=== PATIENT | female | born 1965 | race Caucasian/White ===

== ENCOUNTER 2024-07-11 12:48 | Emergency (ER) | payer OTHER, SELFPAY ==
[2024-07-11 13:00] VITALS: BP 153/88; PULSE 100; RESP 20; TEMP 36.6; O2SAT 95
[2024-07-11 14:20] LABS: Basophils Absolute Auto 0.1 K/mm3 (0.0-0.1); Basophils Percent Auto 0.6 % (0.2-1.2); Eosinophils Absolute Auto 0.2 K/mm3 (0-0.3); Eosinophils Percent Auto 1.5 % (0-4.4); Hemoglobin 14.8 g/dL (12.0-15.0); Immature Granulocyte Absolute 0.04 K/mm3 (0.00-0.031); Immature Granulocyte Percent A 0.3 % (0-0.5); Lymphocytes Absolute Auto 1.99 K/mm3 (0.9-3.2); Lymphocytes Percent Auto 17.3 % (18.3-44.2); Mean Corpuscular HGB Conc 32.9 g/dl (32-36); Mean Corpuscular Hemoglobin 30.6 pg (26-34); Mean Corpuscular Volume 93.2 fl (80-100); Mean Platelet Volume 9.9 fl (7.4-10.4); Monocytes Absolute Auto 0.6 K/mm3 (0.1-0.6); Monocytes Percent Auto 5.5 % (2.6-8.5); Neutrophils Absolute Auto 8.6 K/mm3 (1.3-6.7); Neutrophils Percent Auto 74.8 % (45.5-73.1); Platelet Count Result 240 k/mm3 (150-375); Red Blood Count 4.83 M/mm3 (4.2-5.4); Red Cell Distribution Width 12.8 % (11.5-14.5); White Blood Count 11.5 K/mm3 (4.5-10.0)
[2024-07-11 14:31] LABS: Prothrombin Time 13.7 Seconds (11.1-14.7)
[2024-07-11 14:37] LABS: Alanine Aminotransferase 58 U/L (6-35); Alkaline Phosphatase 80 U/L (38-126); Anion Gap 11 mmol/L (4-12); Aspartate Amino Transferase 55 U/L (14-36); Bilirubin,Total 0.8 mg/dL (0.2-1.3); Blood Urea Nitrogen 10 mg/dL (7-17); Calcium 9.8 mg/dL (8.4-10.2); Carbon Dioxide 26 mmol/L (22-30); Chloride 103 mmol/L (98-107); Estimated CRCL calculation 98 ml/min; Estimated Glomerular Filt Rate > 60; Glucose 129 mg/dL (65-110); Potassium 4.1 mmol/L (3.4-5.0); Sodium 140 mmol/L (137-145)
[2024-07-11 14:47] LABS: NT Pro B Type Natriuretic Pept 63 pg/mL (19.9-100); Troponin I < 0.012 ng/mL (0.000-0.034)
[2024-07-11 15:06] LABS: Influenza A QL RT-PCR Negative (Negative); Influenza B QL RT-PCR Negative (Negative); RSV RNA, RT-PCR Negative (Negative); SARS-CoV-2 RNA PCR Negative (Negative)
--- NOTE | 2024-07-11 15:40 | ED.SOB ---
HPI - SOB/Dyspnea General Chief Complaint: Shortness of Breath/Dyspnea Stated Complaint: shortness of breath Time Seen by Provider: 07/11/24 15:36 Source: patient Mode of arrival: ambulatory Limitations: no limitations History of Present Illness HPI Narrative: 59 YEARS OLD WHITE FEMALE CAME FROM HOME COMPLAINING OF SHORTNESS OF BREATH OVER THE LAST 5 DAYS, GRADUALLY GETTING WORSE. PATIENT REPORTS CAN NOT SLEEP LYING DOWN FLAT. LAST TIME WAS SEEN BY HER FAMILY PHYSICIAN AND HAVE YEAR AGO, HISTORY OF DIABETES, RUN OUT OF INSURANCE USED TO BE ON METFORMIN, NOT ON IT FOR A WHILE. HISTORY OF HYPERLIPIDEMIA, ASTHMA, NOT ON BLOOD THINNER, QUIT SMOKING 1 WEEK AGO, QUIT DRINKING ALCOHOL WEEK AGO. USES MARIJUANA OCCASIONALLY. PATIENT DENIES ANY FEVER OR CHILLS OR NAUSEA VOMITING, FEELS BLOATED Related Data Home Medications ?Medication ?Instructions ?Recorded ?Confirmed ?Last Taken ?Type acetaminophen 325 mg tablet 650 mg PO PRN PRN Pain (Scale 05/13/19 05/13/19 05/12/19 20:00 History (Tylenol) Score 1-3) ascorbic acid (vitamin C) 1,000 mg 1 g PO DAILY 05/13/19 05/13/19 05/10/19 08:00 History tablet (Vitamin C) pediatric multivitamin (Gummi Bear 1 tablet PO DAILY 05/13/19 05/13/19 05/10/19 08:00 History Multivitamin chewable tablet) Allergies Allergy/AdvReac Type Severity Reaction Status Date / Time No Known Allergies Allergy Verified 05/13/19 03:49 Review of Systems Review of Systems: All systems reviewed & are unremarkable except as noted in HPI and below PMFSH Past Medical History Medical History Asthma Surgical History Surgical History History of tonsillectomy Family History Family History Sibling Lung cancer Oral cancer Social History Social History Smoking packs per day: 0.5 Smoking cigarettes per day: 10.0 Years smoked: 40 Smoking pack-years: 20.00 Smoking status: Current every day smoker Tobacco type: cigarettes Second hand tobacco smoke exposure: Yes Additional smoking assessment comments: some days I don't smoke at all Alcohol intake: current Drinks per week: 25 Alcohol use details: 0.5 pint vodka 5 days ago Substance use: never Gender identity (if verbalized by the patient): Female Exam Narrative: GENERAL APPEARANCE: WELL-DEVELOPED, WELL-NOURISHED SKIN: NORMAL COLOR HEAD: NORMOCEPHALIC, NONTRAUMATIC EYES: CLEAR CONJUNCTIVA ENT: OROPHARYNX NORMAL, EARS NORMAL, NOSE NORMAL NECK: SUPPLE, NONTENDER CHEST AND RESPIRATORY: AIRWAY PATENT, SLIGHT LABORED BREATHING, DIMINUTION OF AIR ENTRY BILATERALLY HEART: REGULAR RATE/RHYTHM ABDOMEN: SOFT, NONTENDER, NO ORGANOMEGALY, QUIET BOWEL SOUNDS, LARGE ABDOMEN VASCULAR: NORMAL PERIPHERAL PULSES, NORMAL CAPILLARY REFILL. MUSCULOSKELETAL: NORMAL RANGE OF MOTION, NONTENDER BACK NEUROLOGIC: ALERT AND ORIENTED ?3, TRUANT OFFICER IS NORMAL TESTED, NO GROSS MOTOR DEFICIT Course Vital Signs Vital signs: Vital Signs Temperature 36.6 C 07/11/24 13:00 Pulse Rate 100 07/11/24 13:00 Respiratory Rate 20 07/11/24 13:00 Blood Pressure 153/88 H 07/11/24 13:00 Pulse Oximetry 95 07/11/24 13:00 Oxygen Delivery Room Air 07/11/24 13:00 Temperature 36.4 C 07/11/24 16:04 Pulse Rate 90 07/11/24 16:04 Respiratory Rate 26 H 07/11/24 16:04 Blood Pressure 134/98 H 07/11/24 16:04 Pulse Oximetry 92 07/11/24 16:04 Oxygen Delivery Room Air 07/11/24 16:04 MDM - SOB/Dyspnea MDM Narrative Medical decision making narrative: PATIENT CAME TO THE ED WITH DYSPNEA ON EXERTION AND WHEN SHE LAY DOWN FLAT VITAL SIGNS STABLE PHYSICAL EXAMINATION SIGNIFICANT FOR DECREASE AIR ENTRY BILATERALLY AND DISTENDED ABDOMEN DIFFERENTIAL DIAGNOSIS INCLUDE CONGESTIVE HEART FAILURE, PNEUMONIA, PLEURAL EFFUSION, PNEUMOTHORAX, COPD EXACERBATION, INTRA-ABDOMINAL PATHOLOGY BLOOD WORKUP TODAY INCLUDES CBC, CMP, TROPONIN, LIPASE, BNP SHOWED WBC 11.5, OTHERWISE WITHIN NORMAL LIMIT ABG ON ROOM AIR SHOWED PH OF 7.4, OXYGEN SATURATION ON ROOM AIR 93.7 PATIENT TESTED NEGATIVE FOR COVID, FLU AND RSV CHEST X-RAY SHOWED Minimal opacification near to the cardiac apex which may indicate atelectasis versus early pneumonia. Follow-up advised. CT ABDOMEN AND PELVIS WITH IV CONTRAST SHOWED NO ACUTE ABNORMALITIES, CT CHEST WITH IV CONTRAST SHOWED NO ACUTE CARDIOPULMONARY DISEASE DIAGNOSIS COPD EXACERBATION DISCHARGED ON Z-NAYLA, PREDNISONE Differential Diagnosis Differential diagnosis: Likely other ( ABOVE) Medical Records Attestation: I reviewed the patient's medical records. Lab Data Attestation: I reviewed the patient's lab results. 07/11/24 14:12 07/11/24 14:12 Labs: Lab Results 07/11/24 Range/Units 14:12 WBC 11.5 H (4.5-10.0) K/mm3 RBC 4.83 (4.2-5.4) M/mm3 Hgb 14.8 (12.0-15.0) g/dL Hct 45.0 (37.0-47.0) % MCV 93.2 (80-100) fl MCH 30.6 (26-34) pg MCHC 32.9 (32-36) g/dl RDW 12.8 (11.5-14.5) % Plt Count 240 (150-375) k/mm3 MPV 9.9 (7.4-10.4) fl Immature Gran % (Auto) 0.3 (0-0.5) % Neut % (Auto) 74.8 H (45.5-73.1) % Lymph % (Auto) 17.3 L (18.3-44.2) % [place] % (Auto) 5.5 (2.6-8.5) % Eos % (Auto) 1.5 (0-4.4) % Baso % (Auto) 0.6 (0.2-1.2) % Lymph # (Auto) 1.99 (0.9-3.2) K/mm3 [place] # (Auto) 0.6 (0.1-0.6) K/mm3 Eos # (Auto) 0.2 (0-0.3) K/mm3 Baso # (Auto) 0.1 (0.0-0.1) K/mm3 Abs Immat Gran (auto) 0.04 H (0.00-0.031) K/mm3 Absolute Neuts (auto) 8.6 H (1.3-6.7) K/mm3 Absolute Nucleated RBC 0.000 (0.0-0.012) K/mm3 Nucleated RBC % 0.0 (0.0-0.2) % PT 13.7 (11.1-14.7) Seconds INR 1.0 APTT 27.0 (22.3-36.8) Seconds Sodium 140 (137-145) mmol/L Potassium 4.1 (3.4-5.0) mmol/L Chloride 103 (98-107) mmol/L Carbon Dioxide 26 (22-30) mmol/L Anion Gap 11 (4-12) mmol/L BUN 10 D (7-17) mg/dL Creatinine 0.50 L (0.7-1.0) mg/dL Estim Creat Clear Calc 98 ml/min Estimated GFR > 60 (59 - ) Glucose 129 H (65-110) mg/dL Calcium 9.8 (8.4-10.2) mg/dL Magnesium 2.0 (1.6-2.3) mg/dL Total Bilirubin 0.8 (0.2-1.3) mg/dL AST 55 H (14-36) U/L ALT 58 H (6-35) U/L Alkaline Phosphatase 80 (38-126) U/L Troponin I < 0.012 (0.000-0.034) ng/mL NT-Pro-B Natriuret Pep 63 (19.9-100) pg/mL Total Protein 8.0 (6.3-8.2) g/dL Albumin 5.0 (3.5-5.1) g/dL Lipase 126 (23-300) U/L Influenza A (RT-PCR) Negative (Negative) Influenza B (RT-PCR) Negative (Negative) RSV (RT-PCR) Negative (Negative) SARS-CoV-2 RNA (RT-PCR) Negative (Negative) ABG Data ABG results: 07/11/24 16:35 Puncture Site Right radial ABG pH 7.410 ABG pCO2 38.8 ABG pO2 67.4 L ABG PO2/FiO2 Ratio 3.21 ABG HCO3 24.0 ABG O2 Saturation 93.7 L ABG O2 Content 19.5 ABG Base Excess -0.4 A-a Gradient 35.9 Oxyhemoglobin 92.7 Total Hemoglobin 15.0 O2 Delivery Device Room air O2 Liters/Min Not Reportable FiO2 21 Imaging Data Radiologist's impression: Impressions Chest X-Ray 07/11/24 14:46 IMPRESSION: Minimal opacification near to the cardiac apex which may indicate atelectasis versus early pneumonia. Follow-up advised. Chest/Abdomen/Pelvis CT 07/11/24 17:30 IMPRESSION: CHEST: 1. No acute cardiopulmonary pathology. ABDOMEN/PELVIS: 1. Fat infiltration of the liver. Small cyst in the right lobe of the liver. 2. Bilateral adrenal adenomas. No follow-up advised unless clinically warranted. ECG Data EKG #1: Attestation: I personally reviewed and interpreted this ECG as follows: ECG completion date: 07/11/24 Interpretation: NORMAL SINUS RHYTHM AT 86 BEATS PER MINUTE, NONSPECIFIC ST T-WAVE ABNORMALITIES, NO PREVIOUS EKG AVAILABLE FOR COMPARISON Discharge Plan Discharge Clinical Impression: Asthma exacerbation in COPD Patient Disposition: Home, Self-Care Condition: Stable Instructions: Antibiotic Form, COPD (Chronic Obstructive Pulmonary Disease) (DC) Patient Language: Armenian Prescriptions: New azithromycin [Zithromax Z-Nayla] 250 mg tablet 250 mg PO DAILY PRN (Reason: COPD) 5 Days Qty: 6 0RF prednisone 20 mg tablet 40 mg PO DAILY 5 Days Qty: 10 0RF budesonide-formoterol [Symbicort] 80-4.5 mcg/actuation HFA aerosol inhaler 2 puff inhalation Q12H Qty: 10.2 0RF No Action pediatric multivitamin [Gummi Bear Multivitamin] Tablet,Chewable 1 tablet PO DAILY ascorbic acid (vitamin C) [Vitamin C] 1,000 mg Tablet 1 g PO DAILY acetaminophen [Tylenol] 325 mg Tablet 650 mg PO PRN PRN (Reason: Pain (Scale Score 1-3)) guaifenesin [Mucus Relief ER] 600 mg Tablet Extended Release 12hr 600 mg PO Q12HR 30 Days Qty: 60 0RF azithromycin 250 mg tablet 250 mg PO DAILY 3 Days Qty: 3 0RF albuterol sulfate 90 mcg/actuation Hfa Aerosol Inhaler 1 inh INHALATION QID PRN (Reason: Shortness Of Breath Or Wheezing) 30 Days Qty: 8.5 0RF Rx Instructions: ProAir HFA prednisone 10 mg tablet 10 mg PO DIRECTED 12 Days Qty: 12 0RF Rx Instructions: 4 tabs daily x 3 days then 3 tabs daily x 3 days then 2 tabs daily x 3 days then 1 tab daily x 3 days Follow-up/Referrals: Krishna Nesbitt MD [Physician] - 07/14/24 UNKNOWN,DOCTOR [Non-Staff] -
--- NOTE | 2024-07-11 15:50 | PC.NURSE ---
called labratory to add on lab orders to blood already sent to the lab.
[2024-07-11 16:04] VITALS: BP 134/98; PULSE 90; RESP 26; TEMP 36.4; O2SAT 92; O2SAT 95
[2024-07-11 16:04] LABS: Lipase 126 U/L (23-300)
[2024-07-11 16:38] LABS: Alveolar/Arterial O2 Gradient 35.9 mmHg; Base Excess ABG -0.4 mEq/l (+/-2.0); Fractional Inspired Oxygen 21 %; Oxygen Content ABG 19.5 %vol (16.0-22.0); Oxygen Saturation ABG 93.7 % (95.0-100.0); Oxyhemoglobin 92.7 % THb (90.0-100.0); PCO2 ABG 38.8 mmHg (35.0-45.0); PO2 ABG 67.4 mmHg (80.0-100.0); PO2 FiO2 Ratio Arterial Blood 3.21 %
[2024-07-11 16:40] LABS: Device ROOM AIR; Modified Allen's Test Pass; Site Drawn RIGHT RADIAL
[2024-07-11 18:01] VITALS: BP 144/91; PULSE 94; RESP 21; O2SAT 96
[2024-07-11 18:07] VITALS: PULSE 99; RESP 20
[2024-07-11] MEDS: IPRATROPIUM 0.5 MG/ALBUTEROL SULFATE 2.5 MG AMPUL.NEB 3 ML INHALATION (18:07)
[2024-07-11 18:14] VITALS: PULSE 101; RESP 20
[2024-07-11] MEDS: predniSONE 20 MG TABLET 60 MG PO (18:30)
[2024-07-11 18:42] LABS: CRP 1.3 mg/dL (<1.0)
== END 2024-07-11 18:37 | disposition home or self-care (01) ==
PROVIDERS: Emergency Provider Emergency Medicine
DX: J44.9 Chronic obstructive pulmonary disease, unspecified (principal); J45.901 Unspecified asthma with (acute) exacerbation; Z20.822 Contact with and (suspected) exposure to COVID-19; E78.5 Hyperlipidemia, unspecified; E11.9 Type 2 diabetes mellitus without complications; Z87.891 Personal history of nicotine dependence; D35.02 Benign neoplasm of left adrenal gland; D35.01 Benign neoplasm of right adrenal gland; K76.0 Fatty (change of) liver, not elsewhere classified; K76.89 Other specified diseases of liver; R94.31 Abnormal electrocardiogram [ECG] [EKG]; R91.8 Other nonspecific abnormal finding of lung field
CPT/HCPCS: 36415; 36600; 71046; 71260; 74177; 80053; 82805; 83690; 83735; 83880; 84484; 85018; 85025; 85610; 85730; 86140; 87040; 87637; 93005; 94640; 99284; J7512; Q9967